=== PATIENT | male | born 1980 | race Caucasian/White ===

== ENCOUNTER 2023-11-01 22:58 | Emergency (ER) | payer SELFPAY ==
--- NOTE | 2023-11-01 22:59 | ECG_ITS ---
[facility] Test Date: 2023-11-01 Pat Name: Murray Quezada Department: Room: Gender: Male [employer] Specialist: : 1980 Requested By: Ailyn May Order Number: [id number] Rodriguez MD: Alton Villeda M.D. Measurements Intervals [place] Rate: 97 P: 60 OR: 154 QRS: 40 QRSD: 92 T: 39 QT: 345 QTc: 439 Interpretive Statements SINUS RHYTHM No previous ECG available for comparison Electronically Signed On 11-02-2023 12:23:08 CDT by Alton Villeda M.D. [id number]
[2023-11-01 23:04] VITALS: BP 157/98; PULSE 96; RESP 16; TEMP 36.8; O2SAT 100; BMI 30.3
--- NOTE | 2023-11-02 00:16 | XRR_ITS ---
PROCEDURE INFORMATION: Exam: XR Chest Exam date and time: 11/02/2023 12:23 AM Age: 42 years old Clinical indication: Angina; Additional info: Palpitations/cp TECHNIQUE: Imaging protocol: Radiologic exam of the chest. Views: 1 view. COMPARISON: No relevant prior studies available. FINDINGS: Tubes, catheters and devices: EKG monitoring leads overlie the thoracic wall. Lungs: There is no consolidation. Pleural spaces: No pleural effusion or pneumothorax. Heart/Mediastinum: The heart and mediastinum are normal in size. Bones/joints: Unremarkable. XR/XR chest 1V portable [id number] IMPRESSION: No acute findings.
--- NOTE | 2023-11-02 00:16 | ED_ITS ---
HPI - Arrhythmia/Palpitations 2 General: Chief Complaint: Arrhythmia/Palpitations Stated Complaint: Heart Pressure Time Seen by Provider: 11/01/23 23:20 Source: patient Mode of arrival: ambulatory Limitations: no limitations History of Present Illness: Patient is a 42-year-old male presenting to the emergency department complaining of palpitations onset today. He also states he is having a left anterior chest pain that he keeps feeling the need to poke out, and is wondering if this is musculoskeletal as he just went swimming. He states he is very active, however does not have a primary care provider and has never underwent any outpatient cardiac testing. No personal history of strokes or heart attacks. He does not take any medications at home at this time. He states that his palpitations are worse when he lays on his side. These episodes have been intermittent throughout the day and states he felt like they are skipping beats. No personal history of A-fib or other arrhythmias. He is very anxious on arrival, and does report a history of panic attacks. Pain in his chest does not radiate, and he denies any breathing difficulties, syncope, headache, nausea or vomiting, or other symptoms at this time. MD complaint: skipped beats Onset (ago): day(s) Duration: intermittent Context: occurred during rest Associated symptoms: Reports anxiety; Deny nausea or vomiting Review of Systems 2 General: Reports: 10 or more systems reviewed and unremarkable except in HPI and below Const: Denies: fever(s), chills or fatigue Eyes: Denies: change in vision ENMT: Denies: throat pain, ear or mastoid pain or nasal discharge Card: Reports: chest pain and palpitations; Denies: swelling of feet/ankles or lightheadedness Resp: Denies: dyspnea, productive cough or wheezing GI: Denies: abdominal pain, nausea, vomiting, diarrhea or constipation : Denies: flank pain, difficulty urinating, dysuria or urinary frequency Musc: Denies: neck pain, back pain or joint pain Skin/Breast: Denies: rash Neuro: Denies: headache(s), numbness in extremities or weakness in extremities Psych: Reports: anxiety Physical Exam 2 Const: COMMON NORMALS: no acute distress, patient oriented x3 and no limitations GENERAL APPEARANCE: cooperative, comfortable, well developed and anxious ORIENTATION/CONSCIOUSNESS: Yes awake, Yes oriented to person, Yes oriented to place and Yes oriented to time HENMT: COMMON NORMALS: normocephalic, atraumatic and hearing grossly normal bilaterally HEAD & SCALP: normocephalic and atraumatic Eye: COMMON NORMALS: Equal, round and reactive pupils present, EOMs intact bilaterally and conjunctivae normal CONJUNCTIVA: Yes conjunctivae normal P UPIL: Yes Equal, round and reactive pupils present Neck/C-Spine: COMMON NORMALS: full ROM, supple and no JVD Chest: COMMONS NORMALS: normal inspection of the chest OTHER: Reproducible tenderness to palpation about the left anterior chest Resp: COMMON NORMALS: normal respiratory effort, No retractions, No use of accessory muscles and clear to auscultation bilaterally AUSCULTATION: clear to auscultation bilaterally Cardio: COMMON NORMALS: no JVD, regular rate, regular rhythm, No clicks present (Cardio), No murmurs present (Cardio) and No rub (Cardio) RATE: r egular rate RHYTHM: regular rhythm GI: COMMON NORMALS: Normal to inspection, nondistended, normoactive bowel sounds present, Soft to palpation and non-tender AUSCULTATION: Yes normoactive bowel sounds PALPATION: Yes Soft to palpation RECTAL EXAM: Yes deferred Extremity: COMMON NORMALS: normal to inspection, full ROM and capillary refill normal Neuro: COMMON NORMALS: patient oriented x3, moves all extremities, no focal motor deficits and no sensory deficits noted SENSORIUM/ORIENTATION: Yes oriented to person, Yes oriented to place and Yes oriented to time Psych: COMMON NORMALS: mental status grossly normal and Normal thought process present THOUGHT PROCESS: Normal thought process present Skin: COMMON NORMALS: no rashes or lesions noted GENERAL SKIN EXAM: no rashes or lesions noted Course 2 Vital Signs: Vital signs: Vital Signs Temperature 98.2 F 11/01/23 23:04 Pulse Rate 96 11/01/23 23:04 Respiratory Rate 16 11/01/23 23:04 Blood Pressure 157/98 11/01/23 23:04 Pulse Oximetry 100 11/01/23 23:04 Oxygen Delivery Me thod Room Air 11/01/23 23:04 MDM - Arrhythmia/Palpitations Medical Decision Making Patient presented with onset of palpitations today. He has no personal cardiac history, does not have a primary care provider and has never obtained outpatient cardiac testing. No history of these palpitations in the past. His EKG on arrival showed normal sinus rhythm with no acute ST segment changes. His chest x-ray did not demonstrate any acute cardiopulmonary process. His lab work was all overall unremarkable with negative troponin. I believe patient's pain to be benign, etiologies include costochondritis or anxiety. Very low suspicion for acute coronary syndrome at this time though I strongly urged patient to establish with a primary care provider to obtain outpatient cardiac testing and potential evaluation for anxiety/panic. Reasons to return discussed. Lab Data 11/02/23 00:34 11/02/23 00:34 Laboratory Results WBC 10.58 10^3/uL (3.29-11.43) 11/02/23 00:34 RBC 4.60 10^6/uL (3.85-5.65) 11/02/23 00:34 Hgb 13.80 g/dL (11.27-16.99) 11/02/23 00:34 Hct 42.0 % (37-53) 11/02/23 00:34 MCV 91.3 fl (82-101) 11/02/23 00:34 MCH 30.0 pg (27-33) 11/02/23 00:34 MCHC 32.9 g/dL (30-55) 11/02/23 00:34 RDW 11.9 % (12.1-15.1) L 11/02/23 00:34 Plt Count 347 10^3/cmm (157-399) 11/02/23 00:34 MPV 8.6 fL (7.4-10.4) 11/02/23 00:34 Neut % (Auto) 62.2 % 11/02/23 00:34 Lymph % (Auto) 24.7 % 11/02/23 00:34 [place] % (Auto) 8.2 % 11/02/23 00:34 Eos % (Auto) 3.5 % 11/02/23 00:34 Baso % (Auto) 0.8 % 11/02/23 00:34 Neut # (Auto) 6.59 10^3/uL (1.8-7.7) 11/02/23 00:34 Lymph # (Auto) 2.6 10^3/uL (0.8-4.8) 11/02/23 00:34 [place] # (Auto) 0.9 10^3/uL (0.2-0.9) 11/02/23 00:34 Eos # (Auto) 0.4 10^3/uL (0.0-0.8) 11/02/23 00:34 Baso # (Auto) 0.1 10^3/uL (0.0-0.1) 11/02/23 00:34 Nucleated RBC % (auto) 0 % 11/02/23 00:34 Nucleated RBCs # 0.0 /100WBC 11/02/23 00:34 All radiology interpretation(s) finalized by discharge Discharge Plan Discharge Condition: Stable Coding Level of Care Code ED District Claims Manager for Pat Crum
[2023-11-02 00:41] LABS: Basophils # 0.1 10^3/uL (0.0-0.1); Basophils % 0.8 %; Eosinophils # 0.4 10^3/uL (0.0-0.8); Eosinophils % 3.5 %; Lymphocytes # 2.6 10^3/uL (0.8-4.8); Lymphocytes % 24.7 %; Mean Corpuscular HGB Conc 32.9 g/dL (30-55); Mean Corpuscular Volume 91.3 fl (82-101); Mean Platelet Volume 8.6 fL (7.4-10.4); Monocytes # 0.9 10^3/uL (0.2-0.9); Monocytes % 8.2 %; Neutrophils # 6.59 10^3/uL (1.8-7.7); Neutrophils % 62.2 %; Nucleated Red Blood Cells % 0 %; Platelet Count 347 10^3/cmm (157-399); Red Cell Distribution Width 11.9 % (12.1-15.1); White Blood Count 10.58 10^3/uL (3.29-11.43)
[2023-11-02 00:58] LABS: Troponin(5th) Baseline < 6 ng/L (0-15)
[2023-11-02 01:03] LABS: Alanine Aminotransferase 16 U/L (0-41); Albumin Level 4.4 g/dL (3.5-5.2); Alkaline Phosphatase 80 U/L (40-130); Anion Gap 13.9 (5-19); Aspartate Amino Transferase 14 U/L (0-40); Blood Urea Nitrogen 12 mg/dL (6-20); Carbon Dioxide 25 mmol/L (22-29); Chloride 105 mmol/L (98-107); Globulin 2.2 g/dL (1.3-4.6); Glucose 102 mg/dL (65-115); Osmolality Calculated 290 mOsm/kg (285-295); Potassium 3.9 mmol/L (3.5-5.1); Sodium 140 mmol/L (136-145); Total Bilirubin 0.3 mg/dL (0.15-1.2); Total Protein 6.6 g/dL (6.6-8.7)
[2023-11-02 01:14] VITALS: BP 122/76; PULSE 69; RESP 20; O2SAT 91
[2023-11-02 01:27] LABS: Add Urine Microscopic? YES; Bilirubin Urine Neg (Negative); Blood Urine 3+ (Negative); Glucose Urine UA Norm (Normal); Ketones Urine Negative (Negative); Leukocyte Esterase Urine Negative (Negative); Nitrate Urine Negative (Negative); Protein Urine Neg (Negative); Urine Appearance Clear (CLEAR); Urine Color Yellow (Yellow); Urobilinogen Urine Neg (Negative); pH Urine 5 (5-7)
[2023-11-02 01:28] LABS: Add Urine Culture? Yes; Bacteria Urine TRACE /hpf; Mucus Urine TRACE /hpf; RBC Urine 15-25 /hpf (0-2); Squamous Epithelial Cell Urine 0-4 /hpf (0-5)
[2023-11-02 02:14] VITALS: BP 139/71; PULSE 89; RESP 18; O2SAT 98
== END 2023-11-02 02:15 | disposition home or self-care (01) ==
PROVIDERS: Emergency Provider Physician Assistant
DX: R00.2 Palpitations (principal)
CPT/HCPCS: 36415; 71045; 80053; 81001; 84484; 85025; 87086; 93005; 99285